=== PATIENT | female | born 2000 | race Caucasian/White ===

== ENCOUNTER 2021-03-26 09:49 | Emergency (ER) | payer MEDICAID, OTHER ==
[~2021-03-26] VITALS: Ht 125.3 cm; Wt 47.6 kg
[2021-03-26 10:01] VITALS: BP 104/67
[2021-03-26 10:17] LABS: BILIRUBIN,URINE NEGATIVE (NEGATIVE); CLARITY,URINE CLEAR; COLOR,URINE YELLOW; GLUCOSE, URINE (UA) NEGATIVE (NEGATIVE); KETONES,URINE NEGATIVE (NEGATIVE); LEUKOCYTE ESTERASE ,URINE NEGATIVE (NEGATIVE); NITRITE,URINE NEGATIVE (NEGATIVE); PH,URINE 5.5 (5-9); PROTEIN,URINE NEGATIVE (NEGATIVE)
[2021-03-26] MEDS ORDERED: SERT25TA PO (10:20)
[2021-03-26] MEDS ORDERED: HYDR-3584 PO (10:20)
[2021-03-26 10:25] LABS: BACTERIA,URINE TRACE /HPF; RBC,URINE >100 /HPF; WBC,URINE 0-2 /HPF
--- NOTE | 2021-03-26 10:25 | ED GU-Female ---
General Chief Complaint: Female Reproductive Stated Complaint: CRAMPING Nursing Triage Note: Pt ambulatory to FT1 with complaining of constant achey pain in pelvic area that radiates into the lower back. Patient states she started her period around 08:00 Am today. The pain has been constant since she woke around 0800 today. She has not taken any OTC medications today for pain. Source: patient Exam Limitations: no limitations History of Present Illness Date Seen by Provider: March 26, 2021 Time Seen by Provider: 10:10 Initial Comments Patient presents ER by private conveyance from home with chief complaint she was awoken this morning on her. With severe cramping pain left worse than right. She says she typically has painful menstrual syndrome however this is far worse about a 7 or 8 out of 10 cramping pain. She has some nausea but no vomiting. No fevers or chills. No dysuria discharge or dyspareunia. Her last menstrual period prior to this was at the beginning of February approximately 1 month ago. She has been regular with her periods. No history of abdominal surgeries or trauma. Allergies and Home Medications Allergies Coded Allergies: No Known Drug Allergies (Unverified , 03/26/21) Patient Home Medication List Home Medication List Reviewed: Yes Review of Systems Review of Systems Constitutional: No chills, No fever EENTM: No ear discharge, No ear pain Respiratory: No cough, No phlegm, No short of breath Cardiovascular: No chest pain, No edema Gastrointestinal: abdominal pain; No constipation, No diarrhea, No vomiting Genitourinary: denies burning, denies discharge, denies dysuria : No LMP: March 26, 2021 Musculoskeletal: No back pain, No joint pain Psychiatric/Neurological: Denies Anxiety, Denies Depressed All Other Systemes Reviewed Negative Unless Noted: Yes Past Igholrs-Olteug-Xqbzhy Hx Patient Social History Alcohol Use: Denies Use Smoking Status: Current Everyday Smoker Type Used: Cigarettes 2nd Hand Smoke Exposure: Yes Recent Infectious Disease Expo: No Recent Hopitalizations: No Seasonal Allergies Seasonal Allergies: No Past Medical History Surgeries: No Respiratory: No Cardiac: No Neurological: No Genitourinary: No Gastrointestinal: No Musculoskeletal: No Endocrine: No Cancer: No Psychosocial: Yes Anxiety, Depression Integumentary: No Physical Exam Vital Signs Vital Signs - First Documented 03/26/21 10:00 Temp 35.9 Pulse 62 Resp 20 B/P (MAP) 104/67 Pulse Ox 98 O2 Delivery Room Air Capillary Refill : Height, Weight, BMI Height: '" Weight: lbs. oz. kg; 21.00 BMI Method: General Appearance: WD/WN, mild distress HEENT: PERRL/EOMI, pharynx normal Neck: full range of motion, normal inspection Cardiovascular: normal peripheral pulses, regular rate, rhythm Respiratory: lungs clear, normal breath sounds, no respiratory distress, no accessory muscle use Gastrointestinal: normal bowel sounds, soft, tenderness (Right lower quadrant tenderness with rebound tenderness negative for psoas sign Rovsing sign or other mesenteric signs) Neurologic/Psychiatric: alert, normal mood/affect, oriented x 3 Skin: normal color, warm/dry Progress/Results/Core Measures Suspected Sepsis SIRS Temperature: Pulse: 62 Respiratory Rate: 20 Laboratory Tests 03/26/21 10:26: White Blood Count 5.2 Blood Pressure 104 /67 Mean: Laboratory Tests 03/26/21 10:26: Creatinine 0.76, Platelet Count 215, Total Bilirubin 0.6 Results/Orders Lab Results Laboratory Tests Test 03/26/21 10:12 03/26/21 10:26 Range/Units Urine Color YELLOW Urine Clarity CLEAR Urine pH 5.5 5-9 Urine Specific [place] >=1.030 1.016-1.022 Urine Protein NEGATIVE NEGATIVE Urine Glucose (UA) NEGATIVE NEGATIVE Urine Ketones NEGATIVE NEGATIVE Urine Nitrite NEGATIVE NEGATIVE Urine Bilirubin NEGATIVE NEGATIVE Urine Urobilinogen 0.2 < = 1.0 MG/DL Urine Leukocyte Esterase NEGATIVE NEGATIVE Urine RBC (Auto) 3+ H NEGATIVE Urine RBC >100 H /HPF Urine WBC 0-2 /HPF Urine Squamous Epithelial Cells 5-10 /HPF Urine Crystals NONE /LPF Urine Bacteria TRACE /HPF Urine Casts NONE /LPF Urine Mucus NEGATIVE /LPF Urine Culture Indicated NO White Blood Count 5.2 4.3-11.0 10^3/uL Red Blood Count 4.60 3.80-5.11 10^6/uL Hemoglobin 13.9 11.5-16.0 g/dL Hematocrit 42 35-52 % Mean Corpuscular Volume 90 80-99 fL Mean Corpuscular Hemoglobin 30 25-34 pg Mean Corpuscular Hemoglobin Concent 33 32-36 g/dL Red Cell Distribution Width 12.8 10.0-14.5 % Platelet Count 215 130-400 10^3/uL Mean Platelet Volume 11.6 9.0-12.2 fL Immature Granulocyte % (Auto) 0 % Neutrophils (%) (Auto) 59 42-75 % Lymphocytes (%) (Auto) 31 12-44 % Monocytes (%) (Auto) 6 0-12 % Eosinophils (%) (Auto) 3 0-10 % Basophils (%) (Auto) 1 0-10 % Neutrophils # (Auto) 3.1 1.8-7.8 10^3/uL Lymphocytes # (Auto) 1.6 1.0-4.0 10^3/uL Monocytes # (Auto) 0.3 0.0-1.0 10^3/uL Eosinophils # (Auto) 0.1 0.0-0.3 10^3/uL Basophils # (Auto) 0.0 0.0-0.1 10^3/uL Immature Granulocyte # (Auto) 0.0 0.0-0.1 10^3/uL Sodium Level 139 135-145 MMOL/L Potassium Level 3.6 3.6-5.0 MMOL/L Chloride Level 106 98-107 MMOL/L Carbon Dioxide Level 23 21-32 MMOL/L Anion Gap 10 5-14 MMOL/L Blood Urea Nitrogen 11 7-18 MG/DL Creatinine 0.76 0.60-1.30 MG/DL Estimat Glomerular Filtration Rate > 60 BUN/Creatinine Ratio 14 Glucose Level 106 H 70-105 MG/DL Calcium Level 9.1 8.5-10.1 MG/DL Corrected Calcium 8.8 8.5-10.1 MG/DL Total Bilirubin 0.6 0.1-1.0 MG/DL Aspartate Amino Transf (AST/SGOT) 14 5-34 U/L Alanine Aminotransferase (ALT/SGPT) 15 0-55 U/L Alkaline Phosphatase 49 40-136 U/L C-Reactive Protein High Sensitivity 0.03 0.00-0.50 MG/DL Total Protein 7.1 6.4-8.2 GM/DL Albumin 4.4 3.2-4.5 GM/DL My Orders Orders - RJ CERNA Ua Culture If Indicated (03/26/21 09:57) Urine Bedside (03/26/21 09:57) Cbc With Automated Diff (03/26/21 10:22) Comprehensive Metabolic Panel (03/26/21 10:22) Hs C Reactive Protein (5/3/21 10:22) Ketorolac Injection (Toradol Injection) (03/26/21 10:30) Medications Given in ED Current Medications Medications Dose Ordered Sig/Ila Route Start Time Stop Time Status Last Admin Dose Admin Ketorolac Tromethamine 60 mg ONCE ONCE IM 03/26/21 10:30 03/26/21 10:31 DC 03/26/21 10:27 60 MG Vital Signs/I&O 03/26/21 03/26/21 03/26/21 10:00 10:01 11:40 Temp 35.9 35.9 Pulse 62 62 62 Resp 20 20 16 B/P (MAP) 104/67 Pulse Ox 98 98 99 O2 Delivery Room Air Room Air Capillary Refill : Progress Note #1: Time: 10:24 Progress Note She has normal vital signs but a very exquisitely tender guarded abdomen. Concern for torsion versus appendicitis versus gynecologic origin for her pain. Plan to get an ultrasound of her pelvis if her pain does not significantly improve with some Toradol. If her labs are off we may include a CT of the a bdomen pelvis versus careful observation. Progress Note #2: Time: 11:23 Progress Note Patient says her pain has nearly completely resolved after the Toradol. She is quite comfortable has a nonsurgical abdomen, normal vital signs and unremarkable lab work. Given her return precautions and encouraged her to follow-up outpatient as necessary. Departure Impression Primary Impression: Severe menstrual cramps Disposition: HOME, SELF-CARE Condition: Stable Departure-Patient Inst. Decision time for Depature: 11:24 Referrals: NO,LOCAL PHYSICIAN (PCP/Family) Primary Care Physician Patient Instructions: Menstrual Cramps (DC) Add. Discharge Instructions: Drink plenty of fluids. Tylenol 1000 mg every 8 hours as necessary. Motrin 800 mg every 8 hours or naproxen 2 tablets twice a day as necessary for menstrual cramps. Heating pads may also be beneficial. Return to the ER if you are having severe, intractable pain or other worrisome symptoms. All discharge instructions reviewed with patient and/or family. Voiced underst anding. Work/School Note: Work Release Form Date Seen in the Emergency Department: Mckenna vivas 2020 Return to Work: March 28, 2021 Restrictions: No Restrictions Other Restrictions Listed Below: May return sooner if feeling better. RJ CERNA March 26, 2021 10:25
[2021-03-26] MEDS ORDERED: KETOROLAC 60 MG/2 ML VIAL IM ONE (10:30)
[2021-03-26 10:31] LABS: BASOPHILS % (AUTO) 1 % (0-10); EOSINOPHILS # (AUTO) 0.1 10^3/uL (0.0-0.3); EOSINOPHILS % (AUTO) 3 % (0-10); HEMATOCRIT 42 % (35-52); HEMOGLOBIN 13.9 g/dL (11.5-16.0); LYMPHOCYTES # (AUTO) 1.6 10^3/uL (1.0-4.0); LYMPHOCYTES % (AUTO) 31 % (12-44); MEAN CORPUSCULAR HEMOGLOBIN 30 pg (25-34); MEAN CORPUSCULAR HGB CONC 33 g/dL (32-36); MEAN CORPUSCULAR VOLUME 90 fL (80-99); MEAN PLATELET VOLUME 11.6 fL (9.0-12.2); MONOCYTES # (AUTO) 0.3 10^3/uL (0.0-1.0); MONOCYTES % (AUTO) 6 % (0-12); NEUTROPHILS # (AUTO) 3.1 10^3/uL (1.8-7.8); NEUTROPHILS % (AUTO) 59 % (42-75); PLATELET COUNT 215 10^3/uL (130-400); WHITE BLOOD COUNT 5.2 10^3/uL (4.3-11.0)
[2021-03-26 10:44] LABS: ALBUMIN 4.4 GM/DL (3.2-4.5)
[2021-03-26 10:45] LABS: CHLORIDE 106 MMOL/L (98-107); POTASSIUM 3.6 MMOL/L (3.6-5.0); SODIUM 139 MMOL/L (135-145)
[2021-03-26 10:46] LABS: CALCIUM 9.1 MG/DL (8.5-10.1)
[2021-03-26 10:47] LABS: GLUCOSE 106 MG/DL (70-105); TOTAL PROTEIN 7.1 GM/DL (6.4-8.2)
[2021-03-26 10:48] LABS: CARBON DIOXIDE 23 MMOL/L (21-32)
[2021-03-26 10:49] LABS: BILIRUBIN,TOTAL 0.6 MG/DL (0.1-1.0)
[2021-03-26 10:51] LABS: ALKALINE PHOSPHATASE 49 U/L (40-136); CREATININE SERUM 0.76 MG/DL (0.60-1.30); GFR ESTIMATED > 60
[2021-03-26 10:52] LABS: BUN/CREATININE RATIO 14
[2021-03-26 10:54] LABS: ALANINE AMINOTRANSFERASE 15 U/L (0-55)
== END 2021-03-26 11:44 | disposition home or self-care (01) ==
LOC: ER 09:51
DX: N94.6 Dysmenorrhea, unspecified (principal); F17.210 Nicotine dependence, cigarettes, uncomplicated
CPT/HCPCS: 36415; 80053; 81000; 84703; 85025; 86141

== ENCOUNTER → 2021-12-17 | Outpatient (CLI) | payer MEDICAID ==
[~2021-12-17] MED LIST: HYDR-3584 PO; SERT25TA PO
--- NOTE | 2021-12-17 12:20 | Diagnostic Imaging Report ---
INDICATION: . 1st trimester screening. COMPARISON: None. TECHNIQUE: Transpelvic and transvaginal sonogram was performed. FINDINGS: Single intrauterine gestational sac is identified. No yolk sac is seen. There is echogenic intraluminal filling defect, which could represent a pole. It measures 5 mm in length. No heart tones are identified.. No adnexal masses are identified. The ovaries are normal in appearance. The left ovary measures 2.9 x 2 x 3.1 cm, and the right measures 2.7 x 1 x 2.2 cm. There is no free fluid in the cul-de-sac. CLINICAL DATES: Gestational age 10 weeks and 4 days ZAY is 07/11/2022 IMPRESSION: 1. Intrauterine uterine gestational sac is identified with potential pole as described above. No yolk sac or heart tones are identified. This is concerning for failed . Blighted ovum is also consideration assuming the echogenic structure is client service representative of debris and not a normal pole. Followup serial beta hCG is recommended. If indicated, short interval sonographic followup could be performed as well. Dictated by: Dictated on workstation # [id number]
== END ==
LOC: RAD 10:00
PROVIDERS: ATTEND Family Medicine
DX: Z34.91 Encounter for supervision of normal pregnancy, unspecified, first trimester (principal); Z3A.10 10 weeks gestation of pregnancy
CPT/HCPCS: 76801; 76817

== ENCOUNTER 2021-12-24 17:30 | Emergency (ER) | payer MEDICAID ==
[~2021-12-24] VITALS: Ht 149.9 cm; Wt 47.6 kg
--- NOTE | 2021-12-24 17:59 | ED Abdominal Pain ---
General Chief Complaint: OB < 20 WEEKS Stated Complaint: 6 WEEKS, BLEEDING Nursing Triage Note: PT AMBULATE TO ROOM 07 WITH C/O VAGINAL BLEEDING STARTING TODAY AFTER WORK. PT REPORTS SHE THINKS SHE IS 4 WEEKS . Source of Information: Patient Exam Limitations: No Limitations History of Present Illness Date Seen by Provider: Dec 24, 2021 Time Seen by Provider: 17:56 Initial Comments To ER with vaginal bleeding that started today after work. Small amount no clots. She hasn't required any pads or tampons. She is about 6 weeks . Her last menstrual period was 10/04/21. Ab1. She has some minor abdominal cramping. She had labs done at [facility] last week including a beta hCG level. I spoke with Gloria HO from [facility] and confirmed that this was done on 12/20/2021 with a beta-hCG level of 12,470. Timing/Duration: 1-2 Days Severity/Quality: Cramping Location: Suprapubic Radiation: No Radiation Activities at Onset: None Associated Symptoms: Denies Symptoms Allergies and Home Medications Allergies Coded Allergies: No Known Drug Allergies (Unverified , 03/26/21) Patient Home Medication List Home Medication List Reviewed: Yes Hydroxyzine HCl (Hydroxyzine HCl) 10 Mg Tablet, 10 MG PO, (Reported) Entered as Reported by: KOBI FERRARA on 03/26/21 1020 Sertraline HCl (Zoloft) 25 Mg Tablet, 25 MG PO, (Reported) Entered as Reported by: KOBI FERRARA on 03/26/21 1020 Review of Systems Review of Systems Constitutional: see HPI EENTM: No Symptoms Reported Respiratory: No Symptoms Reported Cardiovascular: No Symptoms Reported Gastrointestinal: No Symptoms Reported Genitourinary: See HPI Musculoskeletal: no symptoms reported Skin: no symptoms reported Psychiatric/Neurological: No Symptoms Reported Endocrine: No Symptoms Reported Hematologic/Lymphatic: No Symptoms Reported Past Lozddsn-Meiszk-Xomrjc Hx Patient Social History Tobacco Use?: Yes Tobacco type used: Cigarettes Smoking Status: Current Everyday Smoker Smokeless Tobacco Frequency: Never a User Use of E-Cig and/or Vaping dev: No Use of E-Cig and/or Vaping Micha: Never a User Substance use?: Yes Substance type: Marijuana Substance frequency: Daily Alcohol Use?: No Pt feels they are or have been: No Seasonal Allergies Seasonal Allergies: No Past Medical History Surgeries: No Respiratory: No Cardiac: No Neurological: No Genitourinary: No Gastrointestinal: No Musculoskeletal: No Endocrine: No Cancer: No Psychosocial: Yes Anxiety, Depression Integumentary: No Physical Exam Vital Signs Vital Signs - First Documented 12/24/21 17:33 Temp 36.5 Pulse 107 Resp 17 B/P (MAP) 140/79 (99) O2 Delivery Room Air Capillary Refill : Less Than 3 Seconds Height/Weight/BMI Height: '" Weight: lbs. oz. kg; 21.00 BMI Method: General Appearance: WD/WN, no apparent distress, other (Hemodynamically stable without tachycardia or hypotension.) HEENT: PERRL/EOMI, normal ENT inspection Neck: non-tender, full range of motion Respiratory: lungs clear, normal breath sounds, no respiratory distress, no accessory muscle use Gastrointestinal: normal bowel sounds, non tender, soft Extremities: normal range of motion, non-tender Neurologic/Psychiatric: alert, normal mood/affect, oriented x 3 Skin: normal color, warm/dry Progress/Results/Core Measures Results/Orders Lab Results Laboratory Tests Test 12/24/21 17:45 12/24/21 17:49 Range/Units White Blood Count 7.9 4.3-11.0 10^3/uL Red Blood Count 4.43 3.80-5.11 10^6/uL Hemoglobin 13.1 11.5-16.0 g/dL Hematocrit 39 35-52 % Mean Corpuscular Volume 88 80-99 fL Mean Corpuscular Hemoglobin 30 25-34 pg Mean Corpuscular Hemoglobin Concent 34 32-36 g/dL Red Cell Distribution Width 12.8 10.0-14.5 % Platelet Count 268 130-400 10^3/uL Mean Platelet Volume 11.3 9.0-12.2 fL Immature Granulocyte % (Auto) 0 % Neutrophils (%) (Auto) 65 42-75 % Lymphocytes (%) (Auto) 27 12-44 % Monocytes (%) (Auto) 7 0-12 % Eosinophils (%) (Auto) 1 0-10 % Basophils (%) (Auto) 1 0-10 % Neutrophils # (Auto) 5.1 1.8-7.8 10^3/uL Lymphocytes # (Auto) 2.1 1.0-4.0 10^3/uL Monocytes # (Auto) 0.6 0.0-1.0 10^3/uL Eosinophils # (Auto) 0.1 0.0-0.3 10^3/uL Basophils # (Auto) 0.0 0.0-0.1 10^3/uL Immature Granulocyte # (Auto) 0.0 0.0-0.1 10^3/uL Human Chorionic Gonadotropin, Quant 5602 H <5 MIU/ML Urine Color YELLOW Urine Clarity SL CLOUDY Urine pH 6.0 5-9 Urine Specific [place] >=1.030 1.016-1.022 Urine Protein NEGATIVE NEGATIVE Urine Glucose (UA) NEGATIVE NEGATIVE Urine Ketones NEGATIVE NEGATIVE Urine Nitrite NEGATIVE NEGATIVE Urine Bilirubin NEGATIVE NEGATIVE Urine Urobilinogen 0.2 < = 1.0 MG/DL Urine Leukocyte Esterase NEGATIVE NEGATIVE Urine RBC (Auto) 3+ H NEGATIVE Urine RBC 25-50 H /HPF Urine WBC 2-5 /HPF Urine Squamous Epithelial Cells 5-10 /HPF Urine Crystals NONE /LPF Urine Bacteria MODERATE H /HPF Urine Casts NONE /LPF Urine Mucus LARGE H /LPF Urine Culture Indicated YES My Orders Orders - GABRIEL ALVAREZ APRN Cbc With Automated Diff (12/24/21 17:43) Hcg,Quantitative (12/24/21 17:43) Ua Culture If Indicated (12/24/21 17:43) Abo Rh Type (12/24/21 17:43) Us Ob<14 Wks Sngle W/Transvag (12/24/21 17:49) Urine Culture (12/24/21 17:49) Vital Signs/I&O 12/24/21 17:33 Temp 36.5 Pulse 107 Resp 17 B/P (MAP) 140/79 (99) O2 Delivery Room Air Blood Pressure Mean: 99 Departure Impression Primary Impression: Blighted ovum Disposition: HOME, SELF-CARE Condition: Stable Departure-Patient Inst. Decision time for Depature: 18:53 Referrals: KULDIP LACKEY MD (PCP/Family) Primary Care Physician Patient Instructions: Miscarriage, NO INSTRUCTIONS GIVEN Add. Discharge Instructions: 1. This looks like a blighted ovum which is a gestational sac that developed without on embryo in. Your hCG was 12,470 at [facility] on 12/20/2021. Today it is only about 5000. I would expect continued bleeding and passage of tissue in the next few days. Return to ER for excessive bleeding requiring more than 2 pads per hour for more than 2 hours. Follow-up with your family doctor later this week for recheck. All discharge instructions reviewed with patient and/or family. Voiced unde rstanding. Work/School Note: Work Release Form Date Seen in the Emergency Department: Dec 24, 2021 Return to Work: Dec 27, 2021 GABRIEL ALVAREZ APRN Dec 24, 2021 17:59
[2021-12-24 18:08] LABS: BILIRUBIN,URINE NEGATIVE (NEGATIVE); CLARITY,URINE SL CLOUDY; COLOR,URINE YELLOW; GLUCOSE, URINE (UA) NEGATIVE (NEGATIVE); KETONES,URINE NEGATIVE (NEGATIVE); LEUKOCYTE ESTERASE ,URINE NEGATIVE (NEGATIVE); NITRITE,URINE NEGATIVE (NEGATIVE); PROTEIN,URINE NEGATIVE (NEGATIVE)
[2021-12-24 18:09] LABS: BASOPHILS % (AUTO) 1 % (0-10); EOSINOPHILS # (AUTO) 0.1 10^3/uL (0.0-0.3); EOSINOPHILS % (AUTO) 1 % (0-10); HEMATOCRIT 39 % (35-52); HEMOGLOBIN 13.1 g/dL (11.5-16.0); LYMPHOCYTES # (AUTO) 2.1 10^3/uL (1.0-4.0); LYMPHOCYTES % (AUTO) 27 % (12-44); MEAN CORPUSCULAR HEMOGLOBIN 30 pg (25-34); MEAN CORPUSCULAR HGB CONC 34 g/dL (32-36); MEAN CORPUSCULAR VOLUME 88 fL (80-99); MEAN PLATELET VOLUME 11.3 fL (9.0-12.2); MONOCYTES # (AUTO) 0.6 10^3/uL (0.0-1.0); MONOCYTES % (AUTO) 7 % (0-12); NEUTROPHILS # (AUTO) 5.1 10^3/uL (1.8-7.8); NEUTROPHILS % (AUTO) 65 % (42-75); PLATELET COUNT 268 10^3/uL (130-400); WHITE BLOOD COUNT 7.9 10^3/uL (4.3-11.0)
[2021-12-24 18:18] LABS: BACTERIA,URINE MODERATE /HPF; RBC,URINE 25-50 /HPF
--- NOTE | 2021-12-24 19:14 | Diagnostic Imaging Report ---
INDICATION: Abdominal cramping, bleeding, rule out ectopic . Decreasing beta hCG. TECHNIQUE: Multiple real-time grayscale images were obtained of the pelvis, transabdominally and transvaginally. CORRELATION STUDY: None FINDINGS: Uterus 9.9 x 6.1 x 5.2 cm. There is an intrauterine fluid collection with imaging features that of a gestational sac. Questionable peripheral echogenic foci could be a very small pole, measures approximately 6 weeks. However, this is disproportion to the size of the gestational sac. Cardiac activity cannot be confirmed. Perigestational fluid collection suspect for subchorionic hemorrhage adjacent to gestational sac of 1.6 x 1.4 x 2.5 cm. Right ovary 3.0 x 2.3 x 1.1 cm. Left ovary 2.5 x 2.6 x 2.3 cm, contains a probable corpus luteum cyst of 1.8 x 1.6 x 1.2 cm. Blood flow is demonstrated to the ovaries. Small amount of free fluid in the right adnexa. IMPRESSION: 1. Findings do suggest probable intrauterine gestational sac. There may be a very small peripheral pole. However, there is disproportion size in relationship to the gestational sac to the pole. cardiac activity cannot be confirmed at this time. Additionally, there appears to be the presence of a subchorionic hemorrhage measuring up to 2.5 cm. 2. Correlation with serial beta hCGs and follow-up ultrasound imaging is recommended for reassessment. Dictated by: Dictated on workstation # [id number]
[2021-12-24 19:16] VITALS: BP 122/74
== END 2021-12-24 19:18 | disposition home or self-care (01) ==
LOC: EDUNIT# 17:30 → ER 17:36
DX: O02.0 Blighted ovum and nonhydatidiform mole (principal); F41.9 Anxiety disorder, unspecified; F32.9 Major depressive disorder, single episode, unspecified; F17.210 Nicotine dependence, cigarettes, uncomplicated; Z79.899 Other long term (current) drug therapy
CPT/HCPCS: 36415; 76801; 76817; 81000; 84702; 85025; 86900; 86901; 87088

== ENCOUNTER 2021-12-26 19:31 | Emergency (ER) | payer MEDICAID ==
[~2021-12-26] VITALS: Ht 150 cm; Wt 46.7 kg
[2021-12-26 19:47] VITALS: BP 99/54
[2021-12-26] MEDS ORDERED: fentaNYL INJ 100 MCG/2 ML AMP IVP STA (19:49)
[2021-12-26] MEDS ORDERED: NS IV 1000 ML 1,000 ML IV STA (19:54)
--- NOTE | 2021-12-26 19:54 | ED Abdominal Pain ---
General Chief Complaint: OB < 20 WEEKS Stated Complaint: VAGINAL BLEEDING, CRAMPS Source of Information: Patient Exam Limitations: No Limitations (TIMMY WADDELL) History of Present Illness Date Seen by Provider: Dec 26, 2021 Time Seen by Provider: 19:51 Initial Comments Patient is a 21-year-old female presents ED with can continuous lower abdominal cramping and vaginal bleeding. Was seen here on 24 December with a positive intrauterine with a possible pole but appears to be more of a blighted ovum without any cardiac activity. Patient states that she has not follow-up with Dr. Lackey her [facility]EREOT[facility]. She states she is past 3 large clots and went through 3 pads in the past hour. Worsening lower abdominal cramping and back discomfort. She had a decreased beta quant level with this past visit. Denies history of anemia. Has been taken Tylenol and ibuprofen without much improvement. G2, . Denies of any urinary symptoms, vomiting, diarrhea. (TIMMY WADDELL) Allergies and Home Medications Allergies Coded Allergies: No Known Drug Allergies (Unverified , 03/26/21) Patient Home Medication List Home Medication List Reviewed: Yes (TIMMY WADDELL) Hydroxyzine HCl (Hydroxyzine HCl) 10 Mg Tablet, 10 MG PO, (Reported) Entered as Reported by: KOBI FERRARA on 03/26/21 1020 Naproxen (Naproxen) 500 Mg Tablet.dr 500 MG PO BID Prescribed by: APOLLO CHIN on 12/26/212102 Sertraline HCl (Zoloft) 25 Mg Tablet, 25 MG PO, (Reported) Entered as Reported by: KOBI FERRARA on 03/26/21 1020 Review of Systems Review of Systems Constitutional: No chills, No diaphoresis, No fever, No malaise EENTM: No Eye Pain, No Mouth Pain, No Throat Pain, No Throat Swelling Respiratory: Denies Cough, Denies Orthopnea, Denies Shortness of Air, Denies SOA With Exertion Cardiovascular: Denies Chest Pain, Denies Edema Gastrointestinal: Abdominal Pain; Denies Diarrhea, Denies Nausea, Denies Vomiting Genitourinary: Denies Burning, Denies Frequency, Denies Flank Pain Musculoskeletal: back pain; No joint pain Skin: No change in color, No change in hair/nails (TIMMY WADDELL) All Other Systems Reviewed Negative Unless Noted: Yes (TIMMY WADDELL) Past Woqkubj-Lhmysw-Tchbin Hx Seasonal Allergies Seasonal Allergies: No (TIMMY WADDELL) Past Medical History Surgeries: No Respiratory: No Cardiac: No Neurological: No Genitourinary: No Gastrointestinal: No Musculoskeletal: No Endocrine: No Cancer: No Psychosocial: Yes Anxiety, Depression Integumentary: No (TIMMY WADDELL) Physical Exam Vital Signs Vital Signs - First Documented 12/26/21 19:47 Temp 35.3 Pulse 85 Resp 22 B/P (MAP) 99/54 (69) Pulse Ox 100 O2 Delivery Room Air (MARSHALL SANTOSA K DO) Vital Signs Capillary Refill : (TIMMY WADDELL) Height/Weight/BMI Height: '" Weight: lbs. oz. kg; 21.00 BMI Method: General Appearance: WD/WN HEENT: PERRL/EOMI, normal ENT inspection, TMs normal, pharynx normal Neck: non-tender, full range of motion, supple, normal inspection Respiratory: chest non-tender, lungs clear, normal breath sounds, no respiratory distress, no accessory muscle use Cardiovascular: regular rate, rhythm, no edema, no gallop Gastrointestinal: normal bowel sounds, non tender, soft, no organomegaly, no pulsatile mass Extremities: normal range of motion, non-tender, normal inspection Back: normal inspection, no CVA tenderness, no vertebral tenderness (TIMMY WADDELL) Progress/Results/Core Measures Results/Orders Lab Results Laboratory Tests Test 12/26/21 19:52 12/26/21 20:15 Range/Units Urine Color RED H Urine Clarity CLOUDY Urine pH 8.0 5-9 Urine Specific [place] 1.020 1.016-1.022 Urine Protein 1+ H NEGATIVE Urine Glucose (UA) NEGATIVE NEGATIVE Urine Ketones TRACE H NEGATIVE Urine Nitrite NEGATIVE NEGATIVE Urine Bilirubin NEGATIVE NEGATIVE Urine Urobilinogen 0.2 < = 1.0 MG/DL Urine Leukocyte Esterase NEGATIVE NEGATIVE Urine RBC (Auto) 3+ H NEGATIVE Urine RBC 50-100 H /HPF Urine WBC 5-10 H /HPF Urine Squamous Epithelial Cells NONE /HPF Urine Renal Epithelial Cells NONE /HPF Urine Crystals PRESENT H /LPF Urine Amorphous Sediment MOD [place]ANKIE PHOSPHATE H /LPF Urine Bacteria TRACE /HPF Urine Casts NONE /LPF Urine Mucus NEGATIVE /LPF Urine Culture Indicated NO Urine Test POSITIVE NEGATIVE White Blood Count 9.1 4.3-11.0 10^3/uL Red Blood Count 4.09 3.80-5.11 10^6/uL Hemoglobin 12.2 11.5-16.0 g/dL Hematocrit 37 35-52 % Mean Corpuscular Volume 90 80-99 fL Mean Corpuscular Hemoglobin 30 25-34 pg Mean Corpuscular Hemoglobin Concent 33 32-36 g/dL Red Cell Distribution Width 13.1 10.0-14.5 % Platelet Count 261 130-400 10^3/uL Mean Platelet Volume 11.2 9.0-12.2 fL Immature Granulocyte % (Auto) 0 % Neutrophils (%) (Auto) 58 42-75 % Lymphocytes (%) (Auto) 31 12-44 % Monocytes (%) (Auto) 8 0-12 % Eosinophils (%) (Auto) 3 0-10 % Basophils (%) (Auto) 1 0-10 % Neutrophils # (Auto) 5.2 1.8-7.8 10^3/uL Lymphocytes # (Auto) 2.8 1.0-4.0 10^3/uL Monocytes # (Auto) 0.7 0.0-1.0 10^3/uL Eosinophils # (Auto) 0.2 0.0-0.3 10^3/uL Basophils # (Auto) 0.1 0.0-0.1 10^3/uL Immature Granulocyte # (Auto) 0.0 0.0-0.1 10^3/uL Sodium Level 137 135-145 MMOL/L Potassium Level 3.4 L 3.6-5.0 MMOL/L Chloride Level 105 98-107 MMOL/L Carbon Dioxide Level 20 L 21-32 MMOL/L Anion Gap 12 5-14 MMOL/L Blood Urea Nitrogen 9 7-18 MG/DL Creatinine 0.70 0.60-1.30 MG/DL Estimat Glomerular Filtration Rate 127 BUN/Creatinine Ratio 13 Glucose Level 109 H 70-105 MG/DL Calcium Level 9.2 8.5-10.1 MG/DL Corrected Calcium 9.0 8.5-10.1 MG/DL Total Bilirubin 0.4 0.1-1.0 MG/DL Aspartate Amino Transf (AST/SGOT) 12 5-34 U/L Alanine Aminotransferase (ALT/SGPT) 15 0-55 U/L Alkaline Phosphatase 41 40-136 U/L Total Protein 6.9 6.4-8.2 GM/DL Albumin 4.3 3.2-4.5 GM/DL Human Chorionic Gonadotropin, Quant 2263 H <5 MIU/ML (IGNACIA SANTOS DO) Vital Signs/I&O 12/26/21 19:47 Temp 35.3 Pulse 85 Resp 22 B/P (MAP) 99/54 (69) Pulse Ox 100 O2 Delivery Room Air (IGNACIA SANTOS DO) Departure Communication (Admissions) Patient was seen here on the diagnosed with Blighted ovum. Concerning for miscarriage with trending downward beta quant. Reports heavier bleeding going through 3 pads over the past hour. Refused pelvic exam. Mild distress. Rh+. Patient was given dose of pain medication. Patient was given IV fluids. Urine culture returned lactobacillus likely contaminate. She has no urinary symptoms, vaginal discharge or concern for sexual transmitted infection. Lower abdominal cramping. This improved. Was given a liter fluid. Outpatient follow-up with STEREOTYPER Dr. Lackey. Return precaution were discussed with patient. (TIMMY WADDELL) Impression Primary Impression: Miscarriage Disposition: 01 HOME, SELF-CARE Condition: Stable Departure-Patient Inst. Decision time for Depature: 21:02 (TIMMY WADDELL) Referrals: KULDIP LACKEY MD (PCP/Family) Primary Care Physician Patient Instructions: Miscarriage (DC) Scripts Naproxen (Naproxen) 500 Mg Tablet. 500 MG PO BID, #10 TAB Prov: TIMMY WADDELL 12/26/21 ATTENDING PHYSICIAN NOTE: I WAS PHYSICALLY PRESENT ER PHYSICIAN WHEN THIS PATIENT WAS IN ER, BUT I WAS NOT INVOLVED IN ANY DECISION MAKING OR ANY CARE OF THIS PATIENT. (IGNACIA SANTOS DO) TIMMY WADDELL Dec 26, 2021 19:54 IGNACIA SANTOS DO Dec 26, 2021 21:21
[2021-12-26 20:02] LABS: BILIRUBIN,URINE NEGATIVE (NEGATIVE); CLARITY,URINE CLOUDY; COLOR,URINE RED; GLUCOSE, URINE (UA) NEGATIVE (NEGATIVE); KETONES,URINE TRACE (NEGATIVE); LEUKOCYTE ESTERASE ,URINE NEGATIVE (NEGATIVE); NITRITE,URINE NEGATIVE (NEGATIVE); PROTEIN,URINE 1+ (NEGATIVE)
[2021-12-26] MEDS ORDERED: NS IV 1000 ML 1,000 ML ONE (20:04)
[2021-12-26 20:10] LABS: AMORPHOUS SEDIMENT,UR MOD AMOR PHOSPHATE /LPF; BACTERIA,URINE TRACE /HPF; RBC,URINE 50-100 /HPF
[2021-12-26 20:24] LABS: BASOPHILS # (AUTO) 0.1 10^3/uL (0.0-0.1); BASOPHILS % (AUTO) 1 % (0-10); EOSINOPHILS # (AUTO) 0.2 10^3/uL (0.0-0.3); EOSINOPHILS % (AUTO) 3 % (0-10); HEMATOCRIT 37 % (35-52); HEMOGLOBIN 12.2 g/dL (11.5-16.0); LYMPHOCYTES # (AUTO) 2.8 10^3/uL (1.0-4.0); LYMPHOCYTES % (AUTO) 31 % (12-44); MEAN CORPUSCULAR HEMOGLOBIN 30 pg (25-34); MEAN CORPUSCULAR HGB CONC 33 g/dL (32-36); MEAN CORPUSCULAR VOLUME 90 fL (80-99); MEAN PLATELET VOLUME 11.2 fL (9.0-12.2); MONOCYTES # (AUTO) 0.7 10^3/uL (0.0-1.0); MONOCYTES % (AUTO) 8 % (0-12); NEUTROPHILS # (AUTO) 5.2 10^3/uL (1.8-7.8); NEUTROPHILS % (AUTO) 58 % (42-75); PLATELET COUNT 261 10^3/uL (130-400); WHITE BLOOD COUNT 9.1 10^3/uL (4.3-11.0)
[2021-12-26 20:34] LABS: ALBUMIN 4.3 GM/DL (3.2-4.5); POTASSIUM 3.4 MMOL/L (3.6-5.0)
[2021-12-26 20:36] LABS: CALCIUM 9.2 MG/DL (8.5-10.1)
[2021-12-26 20:37] LABS: TOTAL PROTEIN 6.9 GM/DL (6.4-8.2)
[2021-12-26 20:39] LABS: BILIRUBIN,TOTAL 0.4 MG/DL (0.1-1.0)
[2021-12-26 20:40] LABS: CREATININE SERUM 0.7 MG/DL (0.60-1.30)
[2021-12-26] MEDS ORDERED: NAPR500T8 PO (21:03)
[2021-12-27] MEDS ORDERED: ACHD5005 PO ×2 (03:37→13:13)
[2021-12-27] MEDS ORDERED: ONDA4TAB11 PO (03:59)
== END 2021-12-26 21:14 | disposition home or self-care (01) ==
LOC: EDUNIT# 19:31 → ER 19:33
DX: O03.9 Complete or unspecified spontaneous abortion without complication (principal); F41.9 Anxiety disorder, unspecified; F32.9 Major depressive disorder, single episode, unspecified; Z79.899 Other long term (current) drug therapy
CPT/HCPCS: 36415; 80053; 81000; 84702; 84703; 85025

== ENCOUNTER 2021-12-27 03:23 | Emergency (ER) | payer MEDICAID ==
[~2021-12-27] VITALS: Ht 150 cm; Wt 46.7 kg
[~2021-12-27 03:23] MED LIST changes: +NAPR500T8 PO
[2021-12-27] MEDS ORDERED: RX-NAPROXEN (NAPROSYN) 250 MG TAB PPK#4 PO STA (03:31)
--- NOTE | 2021-12-27 03:34 | ED GU-Female ---
General Stated Complaint: MISCARRIAGE,6 WKS PREG Source: patient History of Present Illness Date Seen by Provider: Dec 27, 2021 Time Seen by Provider: 03:30 Initial Comments PT ARRIVES VIA POV FROM HOME PT HAS BEEN IN THIS ER EARLIER THIS EVENING WELL ON 12/24/21 FOR MISCARRIAGE/BLIGHTED OVUM IN EARLY PT C/O CONTINUED CRAMPING--RATES PAIN 8/10 PT STATES THE BLEEDING HAS LESSENED--IS ONLY ON SECOND PAD SINCE SHE WAS DISMISSED FROM ER EARLIER THIS EVENING. STATES PAIN IS NOT WORSE, BUT IS NOT BETTER, SO CAME BACK TO ER WENT TO BED AT 2300, AND PAIN WAS NOT BAD ( PT WAS GIVEN FENTANYL IV, AND SENT HOME WITH RX FOR NAPROXEN--HAS NOT FILLED YET, PHARMACIES ARE CLOSED ) WOKE UP AT 0200 AND PAIN HAD RETURNED, SO TOOK IBUPROFEN 800 MG AN HOUR AGO AND NO IMPROVEMENT, SO CAME BACK TO ER SYMPTOMS ARE NOT WORSE IN ANY WAY LAB DONE EARLIER THIS EVENING WERE ESSENTIALLY NORMAL, WITH CONTINUED DECREASE IN BETA HCG LEVELS AND STABLE HEMOGLOBIN, WITH NO SIGNS OF INFECTION. Allergies and Home Medications Allergies Coded Allergies: No Known Drug Allergies (Unverified , 03/26/21) Patient Home Medication List Home Medication List Reviewed: Yes Hydrocodone/Acetaminophen (Hydrocodone-Acetamin 5-325 mg) 1 Each Tablet, 1 EACH PO Q4-6 HOURS PRN for PAIN Prescribed by: IGNACIA SANTOS on 12/27/21 0338 Hydroxyzine HCl (Hydroxyzine HCl) 10 Mg Tablet, 10 MG PO, (Reported) Entered as Reported by: KOBI FERRARA on 03/26/21 1020 Naproxen (Naproxen) 500 Mg Tablet.dr, 500 MG PO BID Prescribed by: APOLLO CHIN on 12/26/212102 Ondansetron (Ondansetron Odt) 4 Mg Tab.rapdis, 4 MG PO Q4H Prescribed by: IGNACIA SANTOS on 12/27/21 0359 Sertraline HCl (Zoloft) 25 Mg Tablet, 25 MG PO, (Reported) Entered as Reported by: KOBI FERRARA on 03/26/21 1020 Review of Systems Review of Systems Constitutional: no symptoms reported Respiratory: no symptoms reported Cardiovascular: no symptoms reported Gastrointestinal: no symptoms reported Genitourinary: see HPI, other (CRAMPING) Musculoskeletal: no symptoms reported Skin: no symptoms reported Psychiatric/Neurological: No Symptoms Reported Past Xjznhaw-Eaqkxb-Fwelgq Hx Immunizations Up To Date First/Initial COVID19 Vaccinat: unvaccinated Seasonal Allergies Seasonal Allergies: No Past Medical History Surgeries: No Respiratory: No Cardiac: No Neurological: No Genitourinary: No Gastrointestinal: No Musculoskeletal: No Endocrine: No Cancer: No Psychosocial: Yes Anxiety, Depression Integumentary: No Physical Exam Vital Signs Vital Signs - First Documented 12/27/21 03:30 Temp 36.7 Pulse 86 Resp 18 B/P (MAP) 122/75 (91) Pulse Ox 98 O2 Delivery Room Air Capillary Refill : Height, Weight, BMI Height: '" Weight: lbs. oz. kg; 20.00 BMI Method: General Appearance: WD/WN, no apparent distress, other (UNKEMPT, REEKS OF CIGARETTES) Cardiovascular: regular rate, rhythm, no murmur Respiratory: normal breath sounds Gastrointestinal: soft, tenderness (SUPRAPUBIC AREA. ) Back: no CVA tenderness Extremities: normal inspection Neurologic/Psychiatric: online affiliate marketing manager II-XII nml as tested, no motor/sensory deficits, alert, normal mood/affect, oriented x 3 Skin: normal color, warm/dry Progress/Results/Core Measures Suspected Sepsis SIRS Temperature: Pulse: Respiratory Rate: Blood Pressure / Mean: Results/Orders My Orders Orders - IGNACIA SANTOS DO Ketorolac Injection (Toradol Injection) (12/27/21 03:45) Hydrocodone/Apap 5/325 Tablet (Lortab 5 (12/27/21 03:45) Rx-Hydrocodone/Apap 5-325 Mg (Rx-Vicodin (12/27/21 03:45) Rx-Naproxen (Rx-Naprosyn) (12/27/21 03:31) Rx-Ondansetron Po (Rx-Zofran Po) (12/27/21 03:58) Medications Given in ED Current Medications Medications Dose Ordered Sig/Ila Route Start Time Stop Time Status Last Admin Dose Admin Acetaminophen/ Hydrocodone Bitart 1 ea ONCE ONCE PO 12/27/21 03:45 12/27/21 03:46 DC 12/27/21 03:45 1 EA Acetaminophen/ Hydrocodone Bitart 1 ea Q4H PRN PO 12/27/21 03:45 12/27/21 03:45 1 EA Ketorolac Tromethamine 60 mg ONCE ONCE IM 12/27/21 03:45 12/27/21 03:46 DC 12/27/21 03:45 60 MG Vital Signs/I&O 12/27/21 03:30 Temp 36.7 Pulse 86 Resp 18 B/P (MAP) 122/75 (91) Pulse Ox 98 O2 Delivery Room Air Capillary Refill : Progress Note : Progress Note GIVEN TORADOL IM AND HYDROCODONE PO WILL SEND HOME A TAKE HOME PACK OF HYDROCODONE AND NAPROXEN, WITH RX'S TO FILL WHEN PHARMACIES OPEN PT DECLINES PELVIC EXAM AT THIS TIME. Departure Impression Primary Impression: Miscarriage Disposition: HOME, SELF-CARE Condition: Stable Departure-Patient Inst. Decision time for Depature: 03:33 Referrals: KULDIP LACKEY MD (PCP/Family) Primary Care Physician Patient Instructions: Miscarriage (DC) Add. Discharge Instructions: MOIST HEAT TO LOWER ABDOMEN AREA AT 20 MINUTE INTERVALS GET YOUR PRESCRIPTIONS FILLED THIS MORNING FOR PAIN MEDICATIONS AND TAKE PRESCRIBED FOLLOW UP WITH DR. LACKEY IN 1-2 DAYS FOR FURTHER CARE Scripts Ondansetron (Ondansetron Odt) 4 Mg Tab.rapdis 4 MG PO Q4H for Nausea/Vomiting, #10 TAB Prov: IGNACIA SANTOS DO 12/27/21 Hydrocodone/Acetaminophen (Hydrocodone-Acetamin 5-325 mg) 1 Each Tablet 1 EACH PO Q4-6 HOURS PRN for PAIN, #15 TAB Prov: IGNACIA SANTOS DO 12/27/21 IGNACIA SANTOS DO Dec 27, 2021 03:34
[2021-12-27] MEDS ORDERED: ACHD5005 PO ×2 (03:37→13:13)
[2021-12-27] MEDS ORDERED: KETOROLAC 60 MG/2 ML VIAL IM ONE (03:45)
[2021-12-27] MEDS ORDERED: HYDROcodone/APAP 5 MG/325 MG (LORTAB) TAB PO ONE (03:45)
[2021-12-27] MEDS ORDERED: RX-ONDANSETRON 4 MG ODT (ZOFRAN) PPK #4 PO STA (03:58)
[2021-12-27] MEDS ORDERED: ONDA4TAB11 PO (03:59)
[2021-12-27 04:04] VITALS: BP 122/75
== END 2021-12-27 04:05 | disposition home or self-care (01) ==
LOC: EDUNIT# 03:23 → ER 03:26
DX: O03.9 Complete or unspecified spontaneous abortion without complication (principal); F41.9 Anxiety disorder, unspecified; F32.9 Major depressive disorder, single episode, unspecified; Z79.899 Other long term (current) drug therapy
CPT/HCPCS: 99283

== ENCOUNTER 2023-01-27 16:34 | Emergency (ER) | payer MEDICAID ==
[~2023-01-27] VITALS: Ht 149.8 cm; Wt 53.1 kg
[~2023-01-27 16:34] MED LIST changes: +ACHD5005 PO; +ONDA4TAB11 PO
[2023-01-27] MEDS ORDERED: NS IV 1000 ML 1,000 ML IV SCH (18:00)
[2023-01-27] MEDS ORDERED: ONDANSETRON 4 MG/2 ML (SDV) Z0FRAN IVP ONE (18:00)
[2023-01-27 18:09] LABS: BASOPHILS % (AUTO) 0 % (0-10); EOSINOPHILS % (AUTO) 0 % (0-10); HEMATOCRIT 44 % (35-52); HEMOGLOBIN 15.3 g/dL (11.5-16.0); LYMPHOCYTES # (AUTO) 0.4 10^3/uL (1.0-4.0); LYMPHOCYTES % (AUTO) 3 % (12-44); MEAN CORPUSCULAR HEMOGLOBIN 31 pg (25-34); MEAN CORPUSCULAR HGB CONC 35 g/dL (32-36); MEAN CORPUSCULAR VOLUME 89 fL (80-99); MONOCYTES # (AUTO) 0.5 10^3/uL (0.0-1.0); MONOCYTES % (AUTO) 4 % (0-12); NEUTROPHILS # (AUTO) 10.6 10^3/uL (1.8-7.8); NEUTROPHILS % (AUTO) 92 % (42-75); PLATELET COUNT 254 10^3/uL (130-400); WHITE BLOOD COUNT 11.5 10^3/uL (4.3-11.0)
--- NOTE | 2023-01-27 18:22 | ED GI ---
General Chief Complaint: Abdominal/GI Problems Stated Complaint: VOMITING Nursing Triage Note: PT AMB TO TRIAGE WITH COMPLAINT OF ABD PAIN, VOMITING AND DIARRHEA THAT STARTED THIS MORNING. Source of Information: Patient Exam Limitations: No Limitations (LIDIA FORRESTER APRN) History of Present Illness Date Seen by Provider: Jan 27, 2023 Time Seen by Provider: 18:08 Initial Comments 22-year-old female presents to the ED with reports of 5-6 episodes of vomiting today and 2 episodes of loose stools. Reports the last 3 times she vomited it was green in color. States she last ate yesterday at 3 PM. Denies abdominal pain, does complain of some upper abdominal muscle soreness when vomiting. Denies fevers, chest pain, shortness of air, abdominal pain, dysuria. Last bowel movement was 4 hours ago and was loose. Denies any past medical history, currently uses only a control patch. She has not had any surgeries. (LIDIA FORRESTER APRN) Allergies and Home Medications Allergies Coded Allergies: No Known Drug Allergies (Unverified , 03/26/21) Patient Home Medication List Home Medication List Reviewed: Yes (LIDIA FORRESTER APRN) Hydrocodone/Acetaminophen (Hydrocodone-Acetamin 5-325 mg) 1 Each Tablet, 1 EACH PO Q4-6 HOURS PRN for PAIN Prescribed by: IGNACIA SANTOS on 12/27/21 0338 Hydrocodone/Acetaminophen (Hydrocodone-Acetamin 5-325 mg) 1 Each Tablet, 1 TAB PO Q4H PRN for PAIN-MODERATE (5-7) Prescribed by: GABRIEL ALVAREZ on 12/27/21 1314 Hydroxyzine HCl (Hydroxyzine HCl) 10 Mg Tablet, 10 MG PO, (Reported) Entered as Reported by: KOBI FERRARA on 03/26/21 1020 Naproxen (Naproxen) 500 Mg Tablet., 500 MG PO BID Prescribed by: APOLLO CHIN on 12/26/212102 Ondansetron (Ondansetron Odt) 4 Mg Tab.rapdis, 4 MG PO Q4H Prescribed by: IGNACIA SANTOS on 12/27/21 0359 Ondansetron (Ondansetron Odt) 4 Mg Tab.rapdis, 4 MG SL Q8H PRN for NAUSEA/VOMITING Prescribed by: Lidia Forrester on 01/27/231944 Sertraline HCl (Zoloft) 25 Mg Tablet, 25 MG PO, (Reported) Entered as Reported by: KOBI FERRARA on 03/26/21 1020 Review of Systems Review of Systems Constitutional: see HPI (LIDIA FORRESTER APRN) Past Dhizvad-Dwchja-Yhcgig Hx Patient Social History Tobacco Use?: Yes Tobacco type used: Cigarettes Smoking Status: Current Everyday Smoker Use of E-Cig and/or Vaping dev: No Substance use?: Yes Substance type: Marijuana Alcohol Use?: Yes Alcohol Frequency: Once in a while Pt feels they are or have been: No (LIDIA FORRESTER APRN) Immunizations Up To Date First/Initial COVID19 Vaccinat: unvaccinated Second COVID19 Vaccination Christian: unvaccinated Third COVID19 Vaccination Date: unvaccinated (LIDIA FORRESTER APRN) Seasonal Allergies Seasonal Allergies: No (LIDIA FORRESTER APRN) Past Medical History Surgeries: No Respiratory: No Cardiac: No Neurological: No Genitourinary: No Gastrointestinal: No Musculoskeletal: No Endocrine: No Cancer: No Psychosocial: Yes Anxiety, Depression Integumentary: No (LIDIA FORRESTER APRN) Physical Exam Vital Signs Vital Signs - First Documented 01/27/23 16:49 Temp 36.8 Pulse 108 Resp 97 B/P (MAP) 108/73 (85) Pulse Ox 97 O2 Delivery Room Air (WILIAN TAYLOR MD) Vital Signs Capillary Refill : Less Than 3 Seconds (LIDIA FORRESTER APRN) Height/Weight/BMI Height: '" Weight: lbs. oz. kg; 23.00 BMI Method: General Appearance: WD/WN, no apparent distress Neck: supple, normal inspection Respiratory: lungs clear, normal breath sounds, no respiratory distress, no accessory muscle use Cardiovascular: regular rate, rhythm, no edema, no gallop, no JVD, no murmur Gastrointestinal: normal bowel sounds, soft, no organomegaly, no pulsatile m ass, tenderness (Mild tenderness left lower quadrant) Extremities: normal range of motion, normal inspection Neurologic/Psychiatric: alert, normal mood/affect, oriented x 3 Skin: normal color, warm/dry (LIDIA FORRESTER APRN) Progress/Results/Core Measures Results/Orders Lab Results Laboratory Tests Test 01/27/23 18:05 01/27/23 18:59 Range/Units White Blood Count 11.5 H 4.3-11.0 10^3/uL Red Blood Count 4.99 3.80-5.11 10^6/uL Hemoglobin 15.3 11.5-16.0 g/dL Hematocrit 44 35-52 % Mean Corpuscular Volume 89 80-99 fL Mean Corpuscular Hemoglobin 31 25-34 pg Mean Corpuscular Hemoglobin Concent 35 32-36 g/dL Red Cell Distribution Width 12.6 10.0-14.5 % Platelet Count 254 130-400 10^3/uL Mean Platelet Volume 11.0 9.0-12.2 fL Immature Granulocyte % (Auto) 0 % Neutrophils (%) (Auto) 92 H 42-75 % Lymphocytes (%) (Auto) 3 L 12-44 % Monocytes (%) (Auto) 4 0-12 % Eosinophils (%) (Auto) 0 0-10 % Basophils (%) (Auto) 0 0-10 % Neutrophils # (Auto) 10.6 H 1.8-7.8 10^3/uL Lymphocytes # (Auto) 0.4 L 1.0-4.0 10^3/uL Monocytes # (Auto) 0.5 0.0-1.0 10^3/uL Eosinophils # (Auto) 0.0 0.0-0.3 10^3/uL Basophils # (Auto) 0.0 0.0-0.1 10^3/uL Immature Granulocyte # (Auto) 0.0 0.0-0.1 10^3/uL Neutrophils % (Manual) 93 % Lymphocytes % (Manual) 3 % Monocytes % (Manual) 4 % Eosinophils % (Manual) 0 % Basophils % (Manual) 0 % Band Neutrophils 0 % Blood Morphology Comment NORMAL Sodium Level 139 135-145 MMOL/L Potassium Level 3.4 L 3.6-5.0 MMOL/L Chloride Level 105 98-107 MMOL/L Carbon Dioxide Level 18 L 21-32 MMOL/L Anion Gap 16 H 5-14 MMOL/L Blood Urea Nitrogen 15 7-18 MG/DL Creatinine 0.72 0.60-1.30 MG/DL Estimat Glomerular Filtration Rate 122 BUN/Creatinine Ratio 21 Glucose Level 103 70-105 MG/DL Calcium Level 9.3 8.5-10.1 MG/DL Corrected Calcium 8.5-10.1 MG/DL Total Bilirubin 0.8 0.1-1.0 MG/DL Aspartate Amino Transf (AST/SGOT) 15 5-34 U/L Alanine Aminotransferase (ALT/SGPT) 15 0-55 U/L Alkaline Phosphatase 46 40-136 U/L Total Protein 7.9 6.4-8.2 GM/DL Albumin 4.6 H 3.2-4.5 GM/DL Lipase 24 8-78 U/L Urine Color ORANGE Urine Clarity CLOUDY Urine pH 5.5 5-9 Urine Specific [place] >=1.030 1.016-1.022 Urine Protein TRACE H NEGATIVE Urine Glucose (UA) NEGATIVE NEGATIVE Urine Ketones 2+ H NEGATIVE Urine Nitrite NEGATIVE NEGATIVE Urine Bilirubin 1+ H NEGATIVE Urine Urobilinogen 0.2 < = 1.0 MG/DL Urine Leukocyte Esterase NEGATIVE NEGATIVE Urine RBC (Auto) NEGATIVE NEGATIVE Urine RBC RARE /HPF Urine WBC 0-2 /HPF Urine Squamous Epithelial Cells 10-25 H /HPF Urine Crystals NONE /LPF Urine Bacteria FEW H /HPF Urine Casts NONE /LPF Urine Mucus LARGE H /LPF Urine Culture Indicated NO (WILIAN TAYLOR MD) Vital Signs/I&O 01/27/23 01/27/23 16:49 20:05 Temp 36.8 Pulse 108 84 Resp 97 18 B/P (MAP) 108/73 (85) 118/68 Pulse Ox 97 100 O2 Delivery Room Air (WILIAN TAYLOR MD) Blood Pressure Mean: 85 Progress Progress Note #1: Time: 18:21 Progress Note Patient seen and evaluated, resting in recliner, no acute distress. Based on exam and symptoms, concern for gastroenteritis, diverticulitis, UTI. Work-up initiated including CBC, CMP, lipase, UA, urine . IV fluids and Zofran ordered. Considered CT abdomen and pelvis, but deferred due to no abdominal pain. Progress Note #2: Time: 19:39 Progress Note Labs reviewed. CBC shows slightly elevated WBC 11.5, elevated neutrophils 92. CMP shows slightly low potassium 3.4, decreased CO2 18, elevated anion gap 16, normal BUN 15, normal creatinine 0.72, normal GFR 122, slightly increased albumin 4.6. Lipase normal. UA positive for trace protein, 2+ ketones, 10-25 squamous epithelia cells, few bacteria, likely a contaminated specimen, negative nitrites, negative leukocytes. Potassium ordered for low potassium. Patient unable to swallow potassium pills. Instructions given to increase potassium in diet. Results discussed with patient. Patient states she is feeling a lot better. Will prescribe Zofran for home. Discharge instructions and return precautions provided. (LIDIA FORRESTER APRN) Departure Impression Primary Impression: Nausea and vomiting Disposition: HOME, SELF-CARE Condition: Stable Departure-Patient Inst. Decision time for Depature: 19:40 (LIDIA FORRESTER APRN) Referrals: NO,LOCAL PHYSICIAN (PCP/Family) Primary Care Physician Patient Instructions: Viral Gastroenteritis in Adults Add. Discharge Instructions: Take Zofran as needed for nausea, it may cause constipation, so only take when needed. Drink plenty of noncaffeinated and low sugar beverages over the next couple of days to rehydrate yourself. Start with a liquid diet and progress slowly. When you start eating, follow the BRAT diet (bananas, rice, applesauce, toast). When she feel better you may resume a normal diet. Follow-up with your primary care provider. Return for uncontrolled vomiting, fever, or any other new, concerning, or worsening symptoms. All discharge instructions reviewed with patient and/or family. Voiced understanding. Scripts Ondansetron (Ondansetron Odt) 4 Mg Tab.rapdis 4 MG SL Q8H PRN for NAUSEA/VOMITING, #10 TAB 0 Refills Prov: LIDAI FORRESTER APRN 01/27/23 ATTENDING PHYSICIAN NOTE: I was physically present as attending physician in the emergency department during the care of this patient, but I was not directly involved in the decision making or delivery of care for this patient. (WILIAN TAYLOR MD) LIDIA FORRESTER APRN Jan 27, 2023 18:22 WILIAN TAYLOR MD Jan 30, 2023 05:40
[2023-01-27 18:23] LABS: ALBUMIN 4.6 GM/DL (3.2-4.5); CHLORIDE 105 MMOL/L (98-107); POTASSIUM 3.4 MMOL/L (3.6-5.0); SODIUM 139 MMOL/L (135-145)
[2023-01-27 18:25] LABS: CALCIUM 9.3 MG/DL (8.5-10.1)
[2023-01-27 18:26] LABS: GLUCOSE 103 MG/DL (70-105); TOTAL PROTEIN 7.9 GM/DL (6.4-8.2)
[2023-01-27 18:27] LABS: CARBON DIOXIDE 18 MMOL/L (21-32)
[2023-01-27 18:28] LABS: BILIRUBIN,TOTAL 0.8 MG/DL (0.1-1.0)
[2023-01-27 18:29] LABS: ALKALINE PHOSPHATASE 46 U/L (40-136); BAND NEUTROPHILS 0 %; BASOPHILS % (MANUAL) 0 %; CREATININE SERUM 0.72 MG/DL (0.60-1.30); EOSINOPHILS % (MANUAL) 0 %; GFR ESTIMATED 122; LYMPHOCYTES % (MANUAL) 3 %; MONOCYTES % (MANUAL) 4 %; NEUTROPHILS % (MANUAL) 93 %; RBC MORPH NORMAL
[2023-01-27 18:30] LABS: BUN/CREATININE RATIO 21
[2023-01-27 18:32] LABS: ALANINE AMINOTRANSFERASE 15 U/L (0-55)
[2023-01-27 18:33] LABS: LIPASE 24 U/L (8-78)
[2023-01-27] MEDS ORDERED: KETOROLAC 15 MG/ML VIAL IVP ONE (18:45)
[2023-01-27 19:03] LABS: BILIRUBIN,URINE 1+ (NEGATIVE); CLARITY,URINE CLOUDY; COLOR,URINE ORANGE; GLUCOSE, URINE (UA) NEGATIVE (NEGATIVE); KETONES,URINE 2+ (NEGATIVE); LEUKOCYTE ESTERASE ,URINE NEGATIVE (NEGATIVE); NITRITE,URINE NEGATIVE (NEGATIVE); PH,URINE 5.5 (5-9); PROTEIN,URINE TRACE (NEGATIVE)
[2023-01-27 19:24] LABS: BACTERIA,URINE FEW /HPF; RBC,URINE RARE /HPF; WBC,URINE 0-2 /HPF
[2023-01-27] MEDS ORDERED: KCL 20 MEQ TAB (K-DUR) PO ONE (19:45)
[2023-01-27] MEDS ORDERED: ONDA4TAB11 SL (19:45)
[2023-01-27] MEDS ORDERED: RX-ONDANSETRON 4 MG ODT (ZOFRAN) PPK #4 PO STA (19:47)
[2023-01-27 20:05] VITALS: BP 118/68
== END 2023-01-27 20:05 | disposition home or self-care (01) ==
LOC: EDUNIT# 16:34 → ER 16:36
DX: R11.2 Nausea with vomiting, unspecified (principal); R10.32 Left lower quadrant pain; F17.210 Nicotine dependence, cigarettes, uncomplicated
CPT/HCPCS: 36415; 80053; 81000; 83690; 84703; 85007; 85027; 99283